=== PATIENT | male | born 1995 | race Caucasian/White ===

== ENCOUNTER 2021-12-02 13:12 | Emergency (ER) | payer OTHER ==
[~2021-12-02] VITALS: Ht 167.6 cm; Wt 95.3 kg
[2021-12-02 13:25] VITALS: BP 128/79
--- NOTE | 2021-12-02 13:45 | NUR ---
26/M WALKED IN C/O LOW BACK PAIN ONSET 3 DAYS AGO NOW RADIATING TO SCROTUM ONSET 2 DAYS AGO. DENIES FALL OR INJURY. 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 AAOX4, AMBULATORY. DENIES ANY URINARY S/SX.
[2021-12-02 13:57] VITALS: BP 128/79
--- NOTE | 2021-12-02 16:09 | NUR ---
eloped at this time
--- NOTE | 2021-12-02 16:09 | NUR ---
[employer] CALLED FOR PT IN LOBBY, NO ANSWER.
--- NOTE | 2021-12-02 16:30 | NUR ---
US TECH CALLED FOR PATIENT AGAIN, NO ANSWER.
== END 2021-12-02 16:09 | disposition left against medical advice (07) ==
LOC: MED 13:12
DX: S39.012A Strain of muscle, fascia and tendon of lower back, initial encounter (principal); N50.819 Testicular pain, unspecified; J45.909 Unspecified asthma, uncomplicated; X58.XXXA Exposure to other specified factors, initial encounter; Y93.89 Activity, other specified; Y92.89 Other specified places as the place of occurrence of the external cause; Y99.8 Other external cause status
CPT/HCPCS: 81002; 99282